=== PATIENT | female | born 1970 | race Caucasian/White ===

== ENCOUNTER 2020-11-25 09:20 | Emergency (ER) | payer OTHER ==
[~2020-11-25] VITALS: Ht 165.1 cm; Wt 63.6 kg
[2020-11-25 09:28] VITALS: BP 161/97
[2020-11-25] MEDS ORDERED: DIPH,PERTUSS(ACELL),TET VAC/PF 0.5 ML SYRINGE. VAX IM ONE (09:45)
--- NOTE | 2020-11-25 09:46 | PHYS DOC ---
Past History Past Medical History: No Pertinent History Past Surgical History: Other Additional Past Surgical Histo: femur repair with hardware Alcohol Use: Occasionally Drug Use: None General Adult EDM: Chief Complaint: LACERATION/AVULSION HPI: HPI: 50-year-old female presents with right foot lacerations. The patient was in the bathroom when her granddaughter caused a cabinet to fall over. There was a crashing sound and some form of glass fell onto the floor. The patient kept her granddaughter off the floor and out of the room. She then pushed the cabinet back up into place. At that point she realized that she had stepped on the glass and lacerated her right foot. She has 2 linear lacerations of the plantar surface lateral side. The patient's tetanus is not up-to-date. She denies any other injuries at this time. Review of Systems: Review of Systems: Constitutional: Denies fever or chills Eyes: Denies change in visual acuity HENT: Denies nasal congestion or sore throat Respiratory: Denies cough or shortness of breath Cardiovascular: Denies chest pain or edema GI: Denies abdominal pain, nausea, vomiting, bloody stools or diarrhea : Denies dysuria Musculoskeletal: Denies back pain or joint pain Integument: Lacerations right foot Neurologic: Denies headache, focal weakness or sensory changes Endocrine: Denies polyuria or polydipsia Lymphatic: Denies swollen glands Psychiatric: Denies depression or anxiety Allergies: Allergies: Allergies Coded Allergies Type Severity Reaction Last Updated Verified codeine Allergy Unknown 11/25/20 Yes Physical Exam: PE: Constitutional: Well developed, well nourished, no acute distress, non-toxic appearance. [] HENT: Normocephalic, atraumatic, bilateral external ears normal, oropharynx cheryle st, no oral exudates, nose normal. [] Eyes: PERRLA, EOMI, conjunctiva normal, no discharge. [] Neck: Normal range of motion, no tenderness, supple, no stridor. [] Cardiovascular:Heart rate regular rhythm, no murmur [] Lungs & Thorax: Bilateral breath sounds clear to auscultation [] Abdomen: Bowel sounds normal, soft, no tenderness, no masses, no pulsatile masses. [] Skin: 2 linear lacerations of the right foot plantar surface, lateral side. Each about 4 cm in length. [] Back: No tenderness, no CVA tenderness. [] Extremities: No tenderness, no cyanosis, no clubbing, ROM intact, no edema. [] Neurologic: Alert and oriented X 3, normal motor function, normal sensory function, no focal deficits noted. [] Psychologic: Affect normal, judgement normal, mood normal. [] Current Patient Data: Vital Signs: Vital Signs Date Time Temp Pulse Resp B/P (MAP) Pulse Ox O2 Delivery O2 Flow Rate FiO2 11/25/20 09:28 98.0 108 16 161/97 (118) 98 Room Air EKG: EKG: [] Radiology/Procedures: Radiology/Procedures: [] Heart Score: C/O Chest Pain: N/A Risk Factors: Risk Factors: DM, Current or recent (<one month) smoker, HTN, HLP, family history of CAD, obesity. Risk Scores: Score 0 - 3: 2.5% MACE over next 6 weeks - Discharge Home Score 4 - 6: 20.3% MACE over next 6 weeks - Admit for Clinical Observation Score 7 - 10: 72.7% MACE over next 6 weeks - Early Invasive Strategies Course & Med Decision Making: Course & Med Decision Making Pertinent Labs and Imaging studies reviewed. (See chart for details) The patient's lacerations required sutures. See note below for more details. The patient's tetanus was updated in the emergency room. I will discharge her on Keflex for 7 days prophylactically. She is stable for discharge at this t raz. [] Dragon Disclaimer: Dragon Disclaimer: This electronic medical record was generated, in whole or in part, using a voice recognition dictation system. Laceration Repair Lac Repair Indication: 2 right foot lacerations; laceration one 4 cm linear, laceration two 3.5 cm linear Procedure: I obtained verbal consent for suture repair of the patient's right foot lacerations. Wounds were thoroughly cleansed with normal saline under pressure. No foreign bodies were found. I anesthetized the wounds with let gel followed by 6 cc of 1% lidocaine with epinephrine. Once good anesthesia was achieved, I repaired both wounds with 3-0 Ethilon sutures in an interrupted fashion. Laceration 1 required 7 sutures. Laceration to required 7 sutures. A clean dressing was applied. Total repaired wound length: Laceration 1 4 cm. Laceration to 3.5 cm. Other Items: None The patient tolerated the procedure well Complications: None Departure Departure: Impression: Primary Impression: Laceration of right foot excluding toes Qualified Codes: S91.311A - Laceration without foreign body, right foot, initial encounter Disposition: HOME / SELF CARE / HOMELESS Condition: IMPROVED Referrals: TR VAN (PCP) Patient Instructions: Laceration Care, Adult, [id number] Scripts Cephalexin (CEPHALEXIN) 500 Mg Tablet 1 TAB PO TID for prophylaxis for 7 Days, #21 TAB Prov: JAM FRASER DO 11/25/20 JAM FRASER DO Nov 25, 2020 09:46
[2020-11-25] MEDS ORDERED: LIDOCAINE/EPI/TETRACAINE TOPICAL GEL 3 ML. TP ONE (10:00)
[2020-11-25] MEDS ORDERED: LIDOCAINE 1%/EPI 1:100,000 20 ML VIAL. ONE (10:36)
[2020-11-25] MEDS ORDERED: LIDOCAINE 1%/EPI 1:100,000 10 ML VIAL. INJ ONE (10:45)
[2020-11-25] MEDS ORDERED: CEPH500T PO (11:31)
[2020-11-25] MEDS ORDERED: HYDR-2759 PO (11:43)
[2020-11-26] MEDS ORDERED: DIPH,PERTUSS(ACELL),TET VAC/PF 0.5 ML SYRINGE. VAX IM ONE (13:53)
== END 2020-11-25 11:55 | disposition home or self-care (01) ==
LOC: ER 09:20
DX: S91.311A Laceration without foreign body, right foot, initial encounter (principal); Z88.5 Allergy status to narcotic agent; W20.8XXA Other cause of strike by thrown, projected or falling object, initial encounter; Y93.89 Activity, other specified; Y92.89 Other specified places as the place of occurrence of the external cause; Y99.8 Other external cause status
CPT/HCPCS: 12002; 90471; 90715; 99283